=== PATIENT | female | born 1960 | race Caucasian/White ===

== ENCOUNTER 2020-06-16 20:27 | Emergency (ER) | payer OTHER, SELFPAY ==
[2020-06-16 20:38] VITALS: BP 187/88; PULSE 92; RESP 18; TEMP 36.6; O2SAT 100; BMI 31.6
[2020-06-16 21:00] VITALS: BP 155/82; PULSE 83; RESP 15; O2SAT 97
[2020-06-16 21:07] LABS: Alanine Aminotransferase 36 IU/L (<35); Albumin 4.5 g/dL (3.5-5.0); Albumin Globulin Ratio 1.5 (1.0-2.8); Alkaline Phosphatase 89 U/L (38-126); Aspartate Aminotransferase 38 IU/L (14-36); BUN Creatinine Ratio 19.2 (6-22); Bilirubin Total 0.2 mg/dL (0.2-1.3); Blood Urea Nitrogen 14 mg/dL (7-17); Calcium 9.8 mg/dL (8.4-10.2); Carbon Dioxide 31 mmol/L (22-32); Chloride 104 mmol/L (98-107); Estimated Glomerular Filt Rate > 60.0 mL/min (>60); Globulin 3.1 g/dL (1.7-4.1); Glucose 108 mg/dL (70-100); HEMOLYSIS 33 (0-50); Lipase 138 U/L (23-300); Potassium 4.1 mmol/L (3.4-5.1); Sodium 141 mmol/L (137-145); Total Protein 7.6 g/dL (6.3-8.2)
[2020-06-16 21:09] LABS: Prothrombin Time 11.8 SECONDS (10.1-12.7)
[2020-06-16 21:11] LABS: PTT Partial Thromboplastin Tim 47 SECONDS (26.4-36.2)
--- NOTE | 2020-06-16 21:20 | ED.ABDPAIN ---
HPI - Abdominal Pain General Chief Complaint: Abdominal Pain Stated Complaint: RIGHT SIDE LOWER PAIN Time Seen by Provider: 06/16/20 21:13 Source: patient Mode of arrival: Ambulatory Limitations: no limitations History of Present Illness HPI narrative: The patient developed crampy abdominal pain in the right mid abdomen about 3:00 a.m. this morning. She had mashed potatoes this afternoon, pain intensified. With the symptoms she has no nausea vomiting. Her bowel movements have been normal. She has no urinary complaints. She has IBS. She is status post surgery for hiatal hernia, cholecystectomy, appendectomy, and THS BSO. She has no associated back pain. She denies use recent URI symptoms. She has no dyspnea or cough. She has no fever chills. Related Data Previous Rx's Medication Instructions Recorded metoclopramide HCl [Reglan] 10 mg PO Q8HR PRN #30 tab 06/17/20 Allergies Allergy/AdvReac Type Severity Reaction Status Date / Time NSAIDS (Non-Steroidal Allergy Severe Anaphylaxis Verified 06/17/20 02:55 Anti-Inflamma adhesive Allergy Unknown Verified 06/17/20 02:56 hydrocodone Allergy Verified 06/16/20 20:38 methadone Allergy Verified 06/16/20 20:38 Penicillins Allergy Verified 06/16/20 20:38 Sulfa (Sulfonamide Allergy Verified 06/16/20 20:38 Antibiotics) tramadol [From Ultram] Allergy Verified 06/16/20 20:38 zolpidem Allergy Verified 06/16/20 20:38 Patient History Social History Smoking Status: Never smoker Smoking Status: Never smoker Substance Use Type: does not use Exam Initial Vital Signs Initial Vital Signs: Vital Signs Temperature 98 F 06/16/20 20:38 Pulse Rate 92 H 06/16/20 20:38 Respiratory Rate 18 06/16/20 20:38 Blood Pressure 187/88 H 06/16/20 20:38 Pulse Oximetry 100 06/16/20 20:38 Course Course Course Narrative: Labs were generally reassuring. She was initially given Protonix, and GI contact was normal affect. Morphine helped the pain briefly. CT suggested a filling defect within gastric fundus, she does have a history of surgery for hiatal hernia. She was given IV Reglan with benefit. She will be discharged on the Reglan. She is advised to be on a bland diet. She should follow-up with her physician if symptoms return. Orders Ordered: ED Orders 06/16/20 20:45 Partial Thromboplastin Time Stat Prothrombin Time INR Stat 06/17/20 00:45 CT abdomen pelvis w con Stat Sodium Chloride (Normal Saline 0.9%) 1,000 mls @ 250 mls/hr IV CONT VELMA Last Admin: 06/17/20 01:00 Dose: 250 mls/hr Documented by: [email or web address] Discontinued Medications Al Hydrox/Mg Hydrox/Simethicone 20 ml/ Lidocaine HCl 15 ml 0 ml PO NOW ONE Stop: 06/16/20 21:20 Last Admin: 06/16/20 21:37 Dose: 20 ml Documented by: [email or web address] Diphenhydramine HCl (Diphenhydramine 50 Mg/Ml Vial) 25 mg IV NOW ONE Stop: 06/17/20 03:06 Last Admin: 06/17/20 03:12 Dose: 25 mg Documented by: [email or web address] Sodium Chloride (Normal Saline 0.9%) 1,000 mls @ 250 mls/hr IV CONT [facility] Last Infusion: 06/16/20 23:02 Dose: 0 mls/hr Documented by: [email or web address] Admin: 06/16/20 21:34 Dose: 250 mls/hr Documented by: [email or web address] Ketorolac Tromethamine (Ketorolac 30 Mg/Ml Vial) 15 mg IV NOW ONE Stop: 06/17/20 02:39 Last Admin: 06/17/20 03:04 Dose: Not Given Documented by: [email or web address] Metoclopramide HCl (Metoclopramide 10 Mg/2 Ml Inj) 10 mg IV NOW ONE Stop: 06/17/20 03:06 Last Admin: 06/17/20 03:12 Dose: 10 mg Documented by: [email or web address] Pantoprazole Sodium (Pantoprazole 40 Mg Vial) 40 mg IV NOW ONE Stop: 06/16/20 21:21 Last Admin: 06/16/20 21:35 Dose: 40 mg Documented by: [email or web address] Vital Signs Vital signs: Vital Signs - 8 hr 06/16/20 20:38 06/16/20 21:00 06/16/20 21:30 Temperature 98 F Pulse Rate 92 H 83 82 Respiratory Rate 18 15 16 Blood Pressure 187/88 H 155/82 H 154/74 H Pulse Oximetry 100 97 96 06/16/20 22:30 06/16/20 23:00 06/16/20 23:30 Temperature Pulse Rate 76 79 77 Respiratory Rate 16 16 16 Blood Pressure 141/74 H 145/74 H 149/81 H Pulse Oximetry 97 97 98 06/17/20 00:30 06/17/20 02:36 06/17/20 03:00 Temperature Pulse Rate 79 75 77 Respiratory Rate 16 18 16 Blood Pressure 149/71 H 151/72 H 143/68 H Pulse Oximetry 99 97 96 MDM - Abdominal Pain Lab Data Result diagrams: 06/16/20 08:52 06/16/20 08:52 Labs: Lab Results 06/16/20 06/16/20 06/16/20 Range/Units 08:52 08:52 20:45 WBC 5.5 (4.5-11.0) X10^3/uL RBC 4.63 (4.0-5.2) X10^6/uL Hgb 13.2 (12.0-16.0) g/dL Hct 39.3 (36-46) % MCV 85.0 (80-100) fL MCH 28.6 (26-34) PG MCHC 33.7 (30-36) % RDW 14.8 (11.6-14.8) % Plt Count 263 (150-400) X10^3/uL Neut % (Auto) 56.7 (50-75) % Lymph % (Auto) 33.0 (25-40) % [place] % (Auto) 9.3 (3-14) % Eos % (Auto) 0.1 L (2-4) % Baso % (Auto) 0.9 (0-2) % Neut # (Auto) 3100 (7490-6743) /uL Lymph # (Auto) 1800 (8688-6752) /uL [place] # (Auto) 500 (0-900) /uL Eos # (Auto) 0 (0-450) /uL Baso # (Auto) 0 (0-100) /uL PT 11.8 (10.1-12.7) SECONDS INR 1.0 (0.9-1.3) APTT 47 H (26.4-36.2) SECONDS Sodium 141 (137-145) mmol/L Potassium 4.1 (3.4-5.1) mmol/L Chloride 104 (98-107) mmol/L Carbon Dioxide 31 (22-32) mmol/L BUN 14 (7-17) mg/dL Creatinine 0.73 (0.52-1.04) mg/dL Estimated GFR > 60.0 (>60) mL/min BUN/Creatinine Ratio 19.2 (6-22) Glucose 108 H (70-100) mg/dL Calcium 9.8 (8.4-10.2) mg/dL Total Bilirubin 0.2 (0.2-1.3) mg/dL AST 38 H (14-36) IU/L ALT 36 H (<35) IU/L Alkaline Phosphatase 89 (38-126) U/L Total Protein 7.6 (6.3-8.2) g/dL Albumin 4.5 (3.5-5.0) g/dL Globulin 3.1 (1.7-4.1) g/dL Albumin/Globulin Ratio 1.5 (1.0-2.8) Lipase 138 (23-300) U/L Point of care testing: Urine Dip Bedside Urine Glucose Negative Bedside Urine Bilirubin - Negative Bedside Urine Ketone - Negative Urine Specific [place] 1.025 Bedside Urine Occult Blood - Negative Bedside Urine pH 6.5 Bedside Urine Protein - Negative Bedside Urine Urobilinogen - Negative Bedside Urine Nitrite - Negative Bedside Urine Leukocytes - Negative Esterase Imaging Data CT scan - abdomen/pelvis: Radiologist's Impression: Postsurgical changes. Fluid defect within the gastric fundus. Otherwise normal CT of the abdomen and pelvis. Discharge Plan Departure Patient Disposition: Home Clinical Impression: Dyspepsia Instructions: DI for Dyspepsia Activity Restrictions/Additional Instructions: I recommend a bland diet for the next few days until you are confidence the discomfort is improving. The CT suggests your stomach is not emptying well. That does not mean that is a permanent finding. You had symptoms for only 24 hours. Reglan 10 mg every 8 hours as needed for abdominal discomfort. Recheck with your doctor if symptoms persist. Return here as needed. Prescriptions: New metoclopramide HCl [Reglan] 10 mg tablet 10 mg PO Q8HR PRN (Reason: abdominal discomfort) Qty: 30 RF: 0
[2020-06-16 21:23] LABS: Add Manual Diff / Slide Review NO; Basophils Absolute Auto 0 /uL (0-100); Basophils Percent Auto 0.9 % (0-2); Eosinophils Absolute Auto 0 /uL (0-450); Eosinophils Percent Auto 0.1 % (2-4); Hematocrit 39.3 % (36-46); Hemoglobin 13.2 g/dL (12.0-16.0); Lymphocytes Absolute Auto 1800 /uL (1100-4500); Mean Corpuscular HGB Conc 33.7 % (30-36); Mean Corpuscular Hemoglobin 28.6 PG (26-34); Monocytes Absolute Auto 500 /uL (0-900); Monocytes Percent Auto 9.3 % (3-14); Neutrophils Absolute Auto 3100 /uL (1500-7000); Neutrophils Percent Auto 56.7 % (50-75); Platelet Count 263 X10^3/uL (150-400); Red Blood Cell Count 4.63 X10^6/uL (4.0-5.2); Red Cell Distribution Width 14.8 % (11.6-14.8); White Blood Cell Count 5.5 X10^3/uL (4.5-11.0)
[2020-06-16 21:30] VITALS: BP 154/74; PULSE 82; RESP 16; O2SAT 96
[2020-06-16] MEDS: SODIUM CHLORIDE 0.9% 1,000 ML 250 ML IV (21:34)
[2020-06-16] MEDS: PANTOPRAZOLE 40 MG VIAL IV (21:35)
[2020-06-16] MEDS: MAG HYDROX/ALUMINUM/SIMETH SUS 20 ML, LIDOCAINE VISCOUS 2% 15 ML PO (21:37)
[2020-06-16 22:30] VITALS: BP 141/74; PULSE 76; PULSE 79; RESP 16; O2SAT 97
[2020-06-16 23:00] VITALS: BP 145/74; PULSE 79; RESP 16; O2SAT 97
[2020-06-16 23:30] VITALS: BP 149/81; PULSE 77; RESP 16; O2SAT 98
[2020-06-17 00:30] VITALS: BP 149/71; PULSE 79; RESP 16; O2SAT 99
--- NOTE | 2020-06-17 00:45 | DI.CT.S_ITS ---
PROCEDURE: CT ABDOMEN PELVIS W CON INDICATIONS: Right flank pain TECHNIQUE: After the administration of oral and intravenous contrast, 5 mm thick sections acquired from the diaphragms to the symphysis. 5 mm thick coronal and sagittal reformats were performed. For radiation dose reduction, the following was used: automated exposure control, adjustment of mA and/or kV according to patient size. COMPARISON: [facility], CT, CT ABDOMEN PELVIS WITH CONTRAST, 12/03/2019, 13:00. [facility], CT, CT KUB, 11/28/2017, 23:29. FINDINGS: Image quality: Excellent. ABDOMEN: Lung bases: Lung bases are clear. Heart size is normal. Solid organs: Liver is normal in size and enhancement. Gallbladder has been removed. Biliary system is non-dilated for a post cholecystectomy patient. Pancreas enhances normally. Spleen is normal in size and enhancement. Incidental note is made of an accessory splenule along the anterior aspect of the primary spleen. No adrenal nodules. Kidneys are normal in size and enhancement, without hydronephrosis. Peritoneum and bowel: Within the gastric fundus, there is a filling defect seen. Stomach, small bowel, and colon loops are otherwise normal in caliber and wall thickness. No free fluid or air. Prior appendectomy. Nodes and vessels: No retroperitoneal or mesenteric adenopathy. Aorta and inferior vena cava are normal in caliber. Miscellaneous: No ventral hernias. PELVIS: Genitourinary: Bladder wall thickness is normal. This patient is status post hysterectomy. No adnexal masses are seen. Miscellaneous: No inguinal hernias or adenopathy. Bones: No suspicious bony lesions. No vertebral body compression fractures. IMPRESSION: Filling defect seen involving the fundus of the stomach. This is felt most likely be related to prior Griselda fundoplication. However, please correlate with known patient history. If there is not been a fundoplication procedure, please consider a mass with further workup with upper endoscopy. Incidental note is made of: Cholecystectomy Accessory splenule Appendectomy Hysterectomy Note: No significant discrepancy from the preliminary report. A Dictated by: Phoenix Alva M.D. on 06/17/2020 at 8:22 Approved by: Phoenix Alva M.D. on 06/17/2020 at 8:27
[2020-06-17] MEDS: MORPHINE 4 MG/ML INJ (00:59)
[2020-06-17] MEDS: SODIUM CHLORIDE 0.9% 1,000 ML 250 ML IV (01:00)
[2020-06-17 02:36] VITALS: BP 151/72; PULSE 75; RESP 18; O2SAT 97
[2020-06-17 03:00] VITALS: BP 143/68; PULSE 77; RESP 16; O2SAT 96
--- NOTE | 2020-06-17 03:05 | PC.NURSE ---
Pt states anaphalaxis with NSAIDs, toradol held, MD notified, no new orders at this time.
[2020-06-17] MEDS: METOCLOPRAMIDE 10 MG/2 ML INJ IV (03:12)
[2020-06-17] MEDS: diphenhydrAMINE 50 MG/ML VIAL 25 MG IV (03:12)
[2020-06-17 04:11] VITALS: BP 128/73; PULSE 75; RESP 16; O2SAT 97
== END 2020-06-17 04:13 | disposition home or self-care (01) ==
PROVIDERS: Emergency Provider Emergency Medicine
DX: R10.13 Epigastric pain (principal)
CPT/HCPCS: 36415; 74177; 80053; 81003; 83690; 85025; 85610; 85730; 96361; 96374; 96375; 99284; C9113; J1200; J2270; J2765; Q9967